=== PATIENT | female | born 1995 | race Caucasian/White ===

== ENCOUNTER 2017-01-25 01:03 | Emergency (ER) | payer SELFPAY ==
[2017-01-25] MEDS ORDERED: Vistaril 50 MG/ML IM ONE ×2 (01:35→01:41)
[2017-01-25] MEDS ORDERED: KEFLEX 500 MG PO ONE (01:36)
[2017-01-25] MEDS ORDERED: KEFLEX 500 MG ONE (01:41)
--- NOTE | 2017-01-25 01:42 | ERPHSYRPT ---
- History of Present Illness Time Seen by Provider: 01/25/17 01:32 Source: patient Patient Subjective Stated Complaint: Pt sts allergic reaction to insulation since Tuesday. Sts worsening since exposure. Sts on right jaw/neck and rt collar bone. Pt sts itching and pain. Sts taking OTC benadryl and using hydrocortisone cream for this. Sts she has not taken anything for pain OTC because "it doesn't work for me". Triage Nursing Assessment: Pt alert, oriented, answers all questions appropriately. Skin p/w/d, resps non-labored. Pt ambulatory to tx room steady gait noted. Localized erythema and swelling noted to rtight neck/jaw area. Reddened area with raised bumps noted rt collar bone area. Pt SPO2 WNL. Speaking in full sentences without difficulty. Physician History: CC: right face redness Hx: 21 y/o patient of [facility]. She had normal LMP last week. She rubbed right face and chest against fiberglass insulation a few days ago. Has itching and now worsening redness with some burning sensation. Used OTC hydrocortisone cream and oral benadryl. No fever or chills. No other complaints. Allergies/Adverse Reactions: No Known Drug Allergies Allergy (Verified 01/25/17 01:08) Home Medications: Norgestimate-Ethinyl Estradiol [Ortho Tri-Cyclen] 1 each PO DAILY 01/25/17 [ History] Hx Tetanus, Diphtheria Vaccination/Date Given: Yes (up to date) Hx Influenza Vaccination/Date Given: No Hx Pneumococcal Vaccination/Date Given: No Immunizations Up to Date: Yes - Review of Systems Constitutional: No Fever, No Chills Respiratory: No Dyspnea Skin: Pruritis, Rash (right face and right shoulder/upper chest) - Past Medical History Pertinent Past Medical History: Yes Respiratory History: Asthma GI Medical History: Other Psycho-Social History: Depression Other Medical History: gastritis - Past Surgical History Past Surgical History: No - Social History Smoking Status: Current every day smoker How long have you smoked: 2 Exposure to second hand smoke: No Drug Use: none Patient Lives Alone: No - Female History Hx Last Menstrual Period: 1 week ago - Nursing Vital Signs Nursing Vital Signs: Initial Vital Signs Temperature 98.3 F Temperature Source Oral Pulse Rate 105 Respiratory Rate 16 Blood Pressure [Right Arm] 130/69 Pain Intensity 8 - Physical Exam General Appearance: alert Eye Exam: PERRL/EOMI Ears, Nose, Throat Exam: moist mucous membranes Neck Exam: normal inspection, non-tender, supple Respiratory Exam: normal breath sounds Cardiovascular Exam: regular rate/rhythm Neurologic Exam: alert, oriented x 3, cooperative Skin Exam: warm, dry, other (red patch right cheek and some macular papular red areas right upper chest. Most consistent with contact allergy but could be some early cellulitic change.) SpO2: 98 Oxygen Delivery: Room Air - Course Nursing assessment & vital signs reviewed: Yes Ordered Tests: Medication Summary Generic Name Dose Route Start Last Admin Trade Name Freq PRN Reason Stop Dose Admin Cephalexin HCl 500 mg 01/25/17 01:36 Keflex 500 Mg PO 01/25/17 01:37 STAT ONE Discontinued Medications Generic Name Dose Route Start Last Admin Trade Name Freq PRN Reason Stop Dose Admin Hydroxyzine HCl 50 mg 01/25/17 01:35 Vistaril 50 Mg/Ml IM 01/25/17 01:36 STAT ONE - Progress Progress Note: 01/25/17 01:39 Tetanus up to date. Rx keflex. Change to po atarax. Rx hytone. Counseled pt/family regarding: diagnosis, need for follow-up - Departure Time of Disposition: 01:39 Departure Disposition: Home Clinical Impression: contact dermatitis right face Condition: Stable Critical Care Time: No Referrals: BLADIMIR VAZQUEZ [Primary Care Provider] - Instructions: Contact Dermatitis, Cellulitis -- Adult Additional Instructions: Rx hytone cream. Rx atarax. Rx keflex. Follow up this week with dr Vazquez. Report fever or worsening right away. Try topical aveeno oatmeal compresses. Prescriptions: Hydroxyzine HCl 50 mg PO Q6H PRN PRN #20 tablet PRN Reason: Itching Cephalexin Mh 500 mg [Keflex 500 mg] 1 cap PO QID #28 capsule Hydrocortisone [Hydrocortisone 2.5%] 30 gm TP BID #1 tube
[2017-01-25 01:54] VITALS: BP 131/75; PULSE 97; O2SAT 97
== END 2017-01-25 01:54 | disposition home or self-care (01) ==
LOC: ED 01:03
DX: L25.9 Unspecified contact dermatitis, unspecified cause (principal)
CPT/HCPCS: 96372; 99284; J3410; A9270-GY

== ENCOUNTER 2017-02-11 15:52 | Emergency (ER) | payer SELFPAY ==
[2017-02-11] MEDS ORDERED: TORAdol 30 mg Injection IV ONE (17:09)
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
[2017-02-11] MEDS ORDERED: TORAdol 30 mg Injection ONE (17:39)
[2017-02-11 17:50] LABS: Collection Type CCMS
[2017-02-11 17:51] LABS: Bilirubin NEGATIVE (NEGATIVE); COMPLETE URINE MICROSCOPIC? YES; Glucose NEGATIVE (NEGATIVE); Leukocyte Esterase 2+ (NEGATIVE)
[2017-02-11 17:52] LABS: ADD URINE CULTURE? YES (NO); Bacteria FEW /HPF (NEGATIVE); Epithelial Cells FEW /HPF (FEW)
[2017-02-11 17:55] LABS: BASOPHIL % 0.2 % (0.0-0.4); Eosinophil % 0.3 % (0.00-5.0); Granulocytes % 78.4 % (36.0-66.0); Mean Cell Volume 90.3 fl (78-100); Mean Corpuscular Hemoglobin 30.2 pg (26-32); Mean Platelet Volume 12.1 fl (6-9.5); Monocytes % 7.1 % (0.0-12.0); Platelet Count 284 K/mm3 (150-450); Red Blood Count 4.43 M/mm3 (4.1-5.4); Red Cell Distribution Width 13.9 % (11.5-14.0); White Blood Count 15.4 K/mm3 (4.0-10.5)
[2017-02-11 18:08] VITALS: O2SAT 98
[2017-02-11 18:08] LABS: ALBUMIN 3.6 g/dL (3.4-5.0); ALKALINE PHOSPHATASE 67 U/L (46-116); ANION GAP 14.5 MEQ/L (5-15); BLOOD UREA NITROGEN 10 mg/dL (9-20); CHLORIDE 106 mEq/L (98-107); Carbon Dioxide 25.7 mEq/L (21-32); Glucose 81 MG/DL (70-110); Potassium 3.9 mEq/L (3.5-5.1); SGOT/AST 19 U/L (15-37); SGPT/ALT 12 U/L (12-78); SODIUM 142 mEq/L (136-145); Total Protein 7.9 gm/dL (6.4-8.2)
[2017-02-11 18:24] LABS: BILIRUBIN,TOTAL < 0.10 mg/dL (0.2-1.0)
[2017-02-11] MEDS ORDERED: NORCO 5/325 MG PO ONE (18:31)
[2017-02-11] MEDS ORDERED: NORCO 5/325 MG ONE (18:43)
[2017-02-11 19:11] VITALS: BP 107/56; PULSE 79
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
== END 2017-02-11 19:11 | disposition home or self-care (01) ==
LOC: ED 15:52
DX: S00.93XA Contusion of unspecified part of head, initial encounter (principal); R42 Dizziness and giddiness; Y04.0XXA Assault by unarmed brawl or fight, initial encounter
CPT/HCPCS: 36000; 36415; 70450; 72125; 80053; 80307; 81000; 84703; 85025; 87086; 96374; 99284; J1885; A9270-GY

== ENCOUNTER 2017-02-14 21:30 | Emergency (ER) | payer SELFPAY ==
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
[2017-02-14] MEDS ORDERED: Sodium Chloride 0.9% 1000 ML 1,000 ML ONE (21:55)
[2017-02-14] MEDS ORDERED: Sodium Chloride 0.9% 1000 ML 1,000 ML IV SCH (22:00)
[2017-02-14 22:22] LABS: BASOPHIL % 0.3 % (0.0-0.4); Eosinophil % 2.1 % (0.00-5.0); Granulocytes % 60.1 % (36.0-66.0); Lymphocytes % 28.7 % (24.0-44.0); Mean Cell Volume 90.4 fl (78-100); Mean Corpuscular Hemoglobin 30.2 pg (26-32); Mean Platelet Volume 11.9 fl (6-9.5); Monocytes % 8.8 % (0.0-12.0); Platelet Count 304 K/mm3 (150-450); Red Blood Count 4.37 M/mm3 (4.1-5.4); Red Cell Distribution Width 13.7 % (11.5-14.0); White Blood Count 11.2 K/mm3 (4.0-10.5)
[2017-02-14 22:37] LABS: ALBUMIN 3.6 g/dL (3.4-5.0); ALKALINE PHOSPHATASE 65 U/L (46-116); ANION GAP 15.1 MEQ/L (5-15); BLOOD UREA NITROGEN 10 mg/dL (9-20); CHLORIDE 104 mEq/L (98-107); Carbon Dioxide 26.5 mEq/L (21-32); Glucose 94 MG/DL (70-110); LIPASE 177 U/L (73-393); Potassium 3.8 mEq/L (3.5-5.1); SGOT/AST 24 U/L (15-37); SGPT/ALT 32 U/L (12-78); SODIUM 142 mEq/L (136-145); Total Protein 7.7 gm/dL (6.4-8.2)
[2017-02-14 23:36] LABS: Bilirubin NEGATIVE (NEGATIVE); Collection Type CLEAN CATCH; Glucose NEGATIVE (NEGATIVE); Leukocyte Esterase NEGATIVE (NEGATIVE)
[2017-02-14 23:37] LABS: Bacteria RARE /HPF (NEGATIVE); Blood 250 Ery/ul (0-5); COMPLETE URINE MICROSCOPIC? YES; Epithelial Cells FEW /HPF (FEW); WBC 0-2 /HPF (0-5)
[2017-02-14 23:38] LABS: ADD URINE CULTURE? NO (NO)
[2017-02-15] MEDS ORDERED: ROCEPHIN 1 Gm-D5w 50 ml Bag** 1 G/50 ML IVPB IV STA (00:04)
[2017-02-15] MEDS ORDERED: ROCEPHIN 1 Gm-D5w 50 ml Bag** 1 G/50 ML IVPB IV ONE (00:08)
[2017-02-15] MEDS ORDERED: TORAdol 30 mg Injection IV ONE (00:09)
[2017-02-15] MEDS ORDERED: TORAdol 30 mg Injection ONE (00:10)
[2017-02-15 01:08] VITALS: BP 118/69; PULSE 66; O2SAT 100
== END 2017-02-15 01:06 | disposition home or self-care (01) ==
LOC: ED 21:30
DX: J32.9 Chronic sinusitis, unspecified (principal); F07.81 Postconcussional syndrome; R42 Dizziness and giddiness; R51 Headache
CPT/HCPCS: 36000; 36415; 80053; 80307; 81000; 82150; 83690; 83735; 84703; 85025; 96360; 96361; 96365; 96374; 99284; J0696; J1885

== ENCOUNTER 2017-09-17 18:45 | Emergency (ER) | payer OTHER ==
[2017-09-17] MEDS ORDERED: TYLENOL EXTRA STRENGTH 500 MG ONE (19:17)
[2017-09-17] MEDS: TYLENOL EXTRA STRENGTH 500 MG PO STA (19:18)
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
[2017-09-17] MEDS: NORCO 5/325 MG PO ONE (21:03)
[2017-09-17] MEDS ORDERED: NORCO 5/325 MG ONE (21:03)
[2017-09-17 21:21] VITALS: BP 112/60; PULSE 75; O2SAT 100
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
== END 2017-09-17 21:20 | disposition home or self-care (01) ==
LOC: ED 18:45
DX: F07.81 Postconcussional syndrome (principal); M54.2 Cervicalgia; M54.5 Low back pain; V89.0XXA Person injured in unspecified motor-vehicle accident, nontraffic, initial encounter; Y92.410 Unspecified street and highway as the place of occurrence of the external cause
CPT/HCPCS: 70450; 72125; 72128; 72131; 84703; 99284; A9270-GY

== ENCOUNTER 2021-08-04 16:26 | Emergency (ER) | payer SELFPAY ==
[2021-08-04 16:41] VITALS: BP 117/83; PULSE 81; O2SAT 97
[2021-08-04] MEDS ORDERED: Adacel Vial IM ONE ×2 (16:57→17:06)
[2021-08-04] MEDS ORDERED: Augmentin 875-125 Tablet PO ONE (16:57)
--- NOTE | 2021-08-04 17:05 | ERPHSYRPT ---
- History of Present Illness Time Seen by Provider: 08/04/21 16:40 Source: patient Exam Limitations: no limitations Patient Subjective Stated Complaint: pt was bite by cat, she had cat at the vet and it got scared and bit her Triage Nursing Assessment: pt alert, resp easy, skin w/d/p. has 6 puncture wounds to top of left hand, no bleeding Physician History: 26 years old right-handed dominant female presented in the ER with chief complaint of cat bite prior to arrival of left hand. Patient report cat usually stays outside and she brought him which probably scared him leading to bite. Unsure about the vaccination status of cat. She is acting normal otherwise. They have this cat for 2-1/2 years. Complaining of dull aching to sharp pain in the left hand with multiple punctures which is aggravated with movements and better with being still. No numbness tingling of fingers/thumb. Timing/Duration: today, sudden Quality: painful Severity: moderate Location: hands Possible Causes: other Associated Symptoms: swelling/mass/lumps Allergies/Adverse Reactions: No Known Drug Allergies Allergy (Verified 08/04/21 16:41) Home Medications: Metformin HCl [Metformin ER Osmotic] 1 ea BID 08/04/21 [History] Hx Tetanus, Diphtheria Vaccination/Date Given: No Hx Influenza Vaccination/Date Given: No Hx Pneumococcal Vaccination/Date Given: No Immunizations Up to Date: Yes Travel Risk - International Travel Have you traveled outside of the country in past 3 weeks: No - Coronavirus Screening Are you exhibiting any of the following symptoms?: No Symptoms: Shortness of Breath - Vaccine Status Have you recieved a Covid-19 vaccination: Yes 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: [employer] - Vaccination Dates Date of 2cond Vaccination (if applicable): jun 10 2021 - Review of Systems Constitutional: No Symptoms Ears, Nose, & Throat: No Symptoms Respiratory: No Symptoms Cardiac: No Symptoms Musculoskeletal: Injury Skin: Skin Lesions Neurological: No Symptoms Psychological: No Symptoms Endocrine: No Symptoms Hematologic/Lymphatic: No Symptoms - Past Medical History Pertinent Past Medical History: Yes Respiratory History: Asthma GI Medical History: Other Psycho-Social History: Depression Other Medical History: gastritis - Past Surgical History Past Surgical History: No - Social History Smoking Status: Never smoker How long have you smoked: 2 Exposure to second hand smoke: No Drug Use: none Patient Lives Alone: No - Female History Hx Last Menstrual Period: jun 2021 Hx Now: No - Nursing Vital Signs Nursing Vital Signs: Initial Vital Signs Temperature 98.3 F 08/04/21 16:37 Pulse Rate 81 08/04/21 16:37 Respiratory Rate 18 08/04/21 16:37 Blood Pressure 117/83 08/04/21 16:37 O2 Sat by Pulse Oximetry 97 08/04/21 16:37 Pain Scale Pain Intensity 6 - Physical Exam General Appearance: no apparent distress, alert Neck Exam: normal inspection, full range of motion Respiratory Exam: normal breath sounds, lungs clear Cardiovascular Exam: regular rate/rhythm, normal heart sounds Extremity Exam: other (Multiple puncture wounds left hand between thumb and index area. Tender to touch. Intact range of motion of thumb and index.) Neurologic Exam: alert, oriented x 3, cooperative Skin Exam: normal color SpO2 Interpretation: normal SpO2: 97 O2 Delivery: Room Air Ordered Tests: Medication Summary Discontinued Medications Generic Name Dose Route Start Last Admin Trade Name Freq PRN Reason Stop Dose Admin Amoxicillin/Clavulanate Potassium 875 mg 08/04/21 16:57 08/04/21 17:09 Amox Tr/Potassium Clavulanate 875 Mg Tablet PO 08/04/21 16:58 875 mg STAT ONE Administration Amoxicillin/Clavulanate Potassium Confirm 08/04/21 17:06 Amox Tr/Potassium Clavulanate 875 Mg Tablet Administered 08/04/21 17:07 Dose 875 mg .ROUTE .STK-MED ONE Diphtheria/Tetanus/Acell Pertussis 0.5 ml 08/04/21 16:57 08/04/21 17:10 Tdap --Diph,Pertuss(Acell),Tet Vac/Pf 0.5 Ml Vial IM 08/04/21 16:58 0.5 ml .ONCE ONE Administration Diphtheria/Tetanus/Acell Pertussis Confirm 08/04/21 17:06 Tdap --Diph,Pertuss(Acell),Tet Vac/Pf 0.5 Ml Vial Administered 08/04/21 17:07 Dose 0.5 ml IM .STK-MED ONE - Progress Progress: unchanged Progress Note: 08/04/21 17:01 Does not want any pain medication. Started on Augmentin, tetanus is updated. Paperwork filled for animal deptt. discussed sx/sn of worsening infection needing return which she seems understanding. recommed cat to keep under observation for at least 2 weeks and return if see any behavioral changes or signs of rabid. Counseled pt/family regarding: diagnosis, need for follow-up - Departure Departure Disposition: Home Clinical Impression: Cat bite of hand Qualifiers: Encounter type: initial encounter Laterality: left Qualified Code(s): S61.452A - Open bite of left hand, initial encounter Condition: Stable Critical Care Time: No Referrals: [facility] THOM[facility] MUTUEL CASHIER [Primary Care Provider] - Follow up/PCP as directed (in 2 days for re evaluation) Instructions: Animal Bites (DC), Rabies (DC) Additional Instructions: keep it clean, use Tylenol/Ibuprofen as needed for pain. Follow-up with primary care physician for reevaluation. Watch for signs of infection like increased redness swelling, difficulty movements of finger etc. Keep your cat under observation for at least 2 weeks and report to health department if see any signs of being rabid animal. Prescriptions: Ibuprofen 600 mg PO Q6HPRN PRN 10 Days #20 tablet PRN Reason: Pain Amox Tr/Potass Clav. 875 mg [Augmentin 875-125 Tablet] 875 mg PO BID #14 tablet
[2021-08-04] MEDS ORDERED: Augmentin 875-125 Tablet ONE (17:06)
== END 2021-08-04 17:31 | disposition home or self-care (01) ==
LOC: ED 16:26
DX: S61.452A Open bite of left hand, initial encounter (principal); W55.01XA Bitten by cat, initial encounter
CPT/HCPCS: 90471; 90715; 99283; A9270-GY

== ENCOUNTER 2022-12-25 12:48 | Emergency (ER) | payer MEDICAID, OTHER ==
--- NOTE | 2022-12-25 13:39 | ERPHSYRPT ---
- History of Present Illness Time Seen by Provider: 12/25/22 13:39 Source: patient Exam Limitations: no limitations Patient Subjective Stated Complaint: -11 weeks vaginal bleeding Triage Nursing Assessment: Patient ambulated back to ED and transferred self to bed. Patient A+O X3. Patient's skin pink, warm and dry. Patient states she is 11 weeks and started bleeding this am. Patient states she urinated this am and wiped and noticed bright red blood. Patient denies pain or discomfort. Physician History: 27yo at 11 weeks gestation presents to the ED reporting vaginal bleeding since this morning. Bleeding is similar to a normal period for her, no clots. No recent sexual activity. She denies F/C, abd pain, dysuria, DELGADO, vision changes. Patient does report nausea w/o vomiting. Timing/Duration: today Severity: moderate Modifying Factors: Improves With: nothing Associated Symptoms: nausea, No vomiting, No abdominal pain, No headaches Allergies/Adverse Reactions: No Known Drug Allergies Allergy (Verified 12/25/22 13:06) Home Medications: Pnv No.95/Ferrous Fum/Folic AC [ Caplet] 1 tab PO DAILY 12/25/22 [History] Progesterone, Micronized [Progesterone] 1 cap VAG DAILY 12/25/22 [History] Hx Tetanus, Diphtheria Vaccination/Date Given: No Hx Influenza Vaccination/Date Given: No Hx Pneumococcal Vaccination/Date Given: No Immunizations Up to Date: Yes Travel Risk - International Travel Have you traveled outside of the country in past 3 weeks: No - Coronavirus Screening Are you exhibiting any of the following symptoms?: No Close contact with a COVID-19 positive Pt in past 14-21 Days: No - Vaccine Status Have you recieved a Covid-19 vaccination: Yes 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 - Vaccination Dates Date of 2cond Vaccination (if applicable): jun 10 2021 - Review of Systems Constitutional: No Symptoms Eyes: No Symptoms Respiratory: No Symptoms Cardiac: No Symptoms Abdominal/Gastrointestinal: Nausea, No Abdominal Pain, No Vomiting, No Diarrhea Genitourinary Symptoms: , Vaginal Bleeding, No Dysuria, No Frequency, No Flank Pain, No Vaginal Discharge, No Vaginal Itching Musculoskeletal: No Symptoms Skin: No Symptoms Neurological: No Symptoms Hematologic/Lymphatic: No Symptoms - Past Medical History Pertinent Past Medical History: Yes Respiratory History: Asthma GI Medical History: Other Psycho-Social History: Depression Other Medical History: gastritis - Past Surgical History Past Surgical History: No - Social History Smoking Status: Never smoker How long have you smoked: 2 Exposure to second hand smoke: Yes Drug Use: none Patient Lives Alone: No - Female History Hx Last Menstrual Period: October 11, 2022 Hx Now: Yes Gestational Age: 11 weeks - Nursing Vital Signs Nursing Vital Signs: Initial Vital Signs Temperature 98.3 F 12/25/22 13:09 Pulse Rate 75 12/25/22 13:09 Respiratory Rate 18 12/25/22 13:09 Blood Pressure 124/81 12/25/22 13:09 O2 Sat by Pulse Oximetry 97 12/25/22 13:09 Pain Scale Pain Intensity 0 - Physical Exam General Appearance: no apparent distress Eye Exam: eyes nml inspection Ears, Nose, Throat Exam: normal ENT inspection Respiratory Exam: normal breath sounds Cardiovascular Exam: regular rate/rhythm Gastrointestinal/Abdomen Exam: soft, normal bowel sounds, No tenderness, No distention, No guarding, No rebound Pelvic Exam: normal external exam, vaginal bleeding (no clots appreciated, blood in the vaginal vault), No adnexal tenderness, No adnexal mass, No cervical motion tenderness, No uterine tenderness Back Exam: normal inspection, No CVA tenderness Neurologic Exam: alert, oriented x 3, cooperative Skin Exam: normal color, warm, dry SpO2 Interpretation: normal SpO2: 97 O2 Delivery: Room Air - Course Nursing assessment & vital signs reviewed: Yes - Radiology Ultrasound Exam OB Ultrasound: tele radiology report, Other (+ gestational sac, + pole, HR 163bpm, + movement) Lab/Rad Data: Laboratory Result Diagrams 12/25/22 13:58 12/25/22 13:58 Laboratory Results 12/25/22 12/25/22 12/25/22 Range/Units 14:14 13:58 13:58 WBC (4.0-10.5) x10^3/uL RBC (4.1-5.4) x10^6/uL Hgb (12.0-16.0) g/dL Hct (35-47) % MCV (78-100) fL MCH (26-32) pg MCHC (32-36) g/dL RDW (11.5-14.0) % Plt Count (150-450) x10^3/uL MPV (7.5-11.0) fL Sodium 137 (137-145) mmol/L Potassium 3.9 (3.5-5.1) mmol/L Chloride 102 (98-107) mmol/L Carbon Dioxide 23 (22-30) mmol/L Anion Gap 15.1 H (5-15) MEQ/L BUN 9 (7-17) mg/dL Creatinine 0.50 L (0.52-1.04) mg/dL Estimated GFR > 60.0 ML/MIN Glucose 73 L (74-106) mg/dL Calcium 8.8 (8.4-10.2) mg/dL Beta HCG, Quant 88237 mIU/ml Urine Color (Yellow) Urine Appearance (Clear) Urine pH (4.6-8.0) Ur Specific [place] (1.005-1.030) Urine Protein (Negative) Urine Glucose (UA) (Negative) mg/dL Urine Ketones (Negative) Urine Blood (Negative) Urine Nitrite (Negative) Urine Bilirubin (Negative) Urine Urobilinogen (0.2) mg/dL Ur Leukocyte Esterase (Negative) U Hyaline Cast (Auto) (0-2) /LPF Urine Microscopic RBC (0-5) /HPF Urine Microscopic WBC (0-5) /HPF Ur Epithelial Cells (None Seen) /HPF Urine Bacteria (None Seen) /HPF Urine Yeast (Budding) (None Seen) /HPF Urine Culture Reflexed (NO) Chlamydia DNA Probe NOT DETECTED (NEGATIVE) N.gonorrhoeae DNA Probe NOT DETECTED (NEGATIVE) ABO Group A Rh Factor POSITIVE Antibody Screen NEGATIVE (NEGATIVE) 12/25/22 12/25/22 Range/Units 13:58 13:55 WBC 9.9 (4.0-10.5) x10^3/uL RBC 4.06 L (4.1-5.4) x10^6/uL Hgb 12.3 (12.0-16.0) g/dL Hct 37.3 (35-47) % MCV 91.9 (78-100) fL MCH 30.3 (26-32) pg MCHC 33.0 (32-36) g/dL RDW 12.9 (11.5-14.0) % Plt Count 247 (150-450) x10^3/uL MPV 11.9 H (7.5-11.0) fL Sodium (137-145) mmol/L Potassium (3.5-5.1) mmol/L Chloride (98-107) mmol/L Carbon Dioxide (22-30) mmol/L Anion Gap (5-15) MEQ/L BUN (7-17) mg/dL Creatinine (0.52-1.04) mg/dL Estimated GFR ML/MIN Glucose (74-106) mg/dL Calcium (8.4-10.2) mg/dL Beta HCG, Quant mIU/ml Urine Color Yellow (Yellow) Urine Appearance Cloudy A (Clear) Urine pH 8.0 (4.6-8.0) Ur Specific [place] 1.025 (1.005-1.030) Urine Protein 30 (Negative) Urine Glucose (UA) Negative (Negative) mg/dL Urine Ketones Negative (Negative) Urine Blood Large A (Negative) Urine Nitrite Negative (Negative) Urine Bilirubin Negative (Negative) Urine Urobilinogen 1.0 A (0.2) mg/dL Ur Leukocyte Esterase Moderate A (Negative) U Hyaline Cast (Auto) NONE SEEN (0-2) /LPF Urine Microscopic RBC 11-20 A (0-5) /HPF Urine Microscopic WBC 6-10 A (0-5) /HPF Ur Epithelial Cells Moderate A (None Seen) /HPF Urine Bacteria Few A (None Seen) /HPF Urine Yeast (Budding) Rare A (None Seen) /HPF Urine Culture Reflexed YES (NO) Chlamydia DNA Probe (NEGATIVE) N.gonorrhoeae DNA Probe (NEGATIVE) ABO Group Rh Factor Antibody Screen (NEGATIVE) - Progress Progress Note: No concerns on lab evaluation, speculum exam showed blood, but no clots and no active bleeding from cervix, no cervical motion tenderness. Transvaginal US shows viable fetus w/ HR of 163bpm. Patient will f/u w/ Dr. Farah on Tuesday. Discussed with : Hank Will see patient in: office Counseled pt/family regarding: lab results, need for follow-up, rad results Medical Desision Making - Discussion of managment Care discussed with:: specialist Reviewed:: Test results, Need for additional workup Agreed on:: Treatment plan, need for follow-up Will see patient: In office - Diagnostic Testing Diagnostic test were ordered, analyzed, and reviewed by me: Yes Radiological Interpretation: Reviewed by me, Teleradiologist Report - Risk of complications Low Risk: Low risk of morbidity from additional dx testing or treatment - Departure Departure Disposition: Home Clinical Impression: and not yet delivered in first trimester, Vaginal bleeding before 22 weeks gestation, Asymptomatic bacteriuria during in first trimester Condition: Good Critical Care Time: No Referrals: JERMAINE FARAH DO [ACTIVE STAFF] - Follow up with PCP 2 days Instructions: Bleeding in Early (DC) Prescriptions: Nitrofurantoin Monohyd/M-Cryst [Macrobid 100 mg Capsule] 100 mg PO BID #10 cap
[2022-12-25 14:21] LABS: Hematocrit 37.3 % (35-47); Hemoglobin 12.3 g/dL (12.0-16.0); Mean Cell Volume 91.9 fL (78-100); Mean Corpuscular Hemoglobin 30.3 pg (26-32); Mean Platelet Volume 11.9 fL (7.5-11.0); Platelet Count 247 x10^3/uL (150-450); Red Blood Count 4.06 x10^6/uL (4.1-5.4); Red Cell Distribution Width 12.9 % (11.5-14.0); White Blood Count 9.9 x10^3/uL (4.0-10.5)
[2022-12-25 14:47] LABS: Appearance Cloudy (Clear); Bacteria Few /HPF (None Seen); Bilirubin Negative (Negative); Blood Large (Negative); Epithelial Cells Moderate /HPF (None Seen); Glucose, Urine Negative (Negative); Hyaline Casts NONE SEEN /LPF (0-2); Ketones Negative (Negative); Leukocyte Esterase Moderate (Negative); Nitrite Negative (Negative); Protein,Urine Dip 30 (Negative); Specific Gravity 1.025 (1.005-1.030)
[2022-12-25 14:48] LABS: ANION GAP 15.1 MEQ/L (5-15); BLOOD UREA NITROGEN 9 mg/dL (7-17); CHLORIDE 102 mmol/L (98-107); Calcium 8.8 mg/dL (8.4-10.2); Carbon Dioxide 23 mmol/L (22-30); EST GLOMERULAR FILTRATION RATE > 60.0 ML/MIN; Glucose 73 mg/dL (74-106); Potassium 3.9 mmol/L (3.5-5.1); SODIUM 137 mmol/L (137-145)
[2022-12-25 14:58] LABS: ABO TYPING A; Antibody Screen NEGATIVE (NEGATIVE); RH TYPING POSITIVE
[2022-12-25 15:16] LABS: Budding Yeast Rare /HPF (None Seen)
[2022-12-25 15:17] LABS: ADD URINE CULTURE? YES (NO)
[2022-12-25 16:09] LABS: CHLAMYDIA DNA NOT DETECTED (NEGATIVE); GC DNA Probe NOT DETECTED (NEGATIVE)
[2022-12-25 16:46] LABS: HCG, Quantitative (Inhouse) 60628 mIU/ml
[2022-12-25 17:32] VITALS: BP 105/82; PULSE 78
--- NOTE | 2022-12-25 19:19 | XRAY ---
Indication: Bleeding. Two-dimensional transabdominal and transvaginal early OB ultrasound performed. Comparison: None Single injured gestational sac with presence of a single pole and yolk sac. Mean crown-rump length measures 3.93 cm corresponding to 10 weeks 6 days. heart rate 143 BPM. No abnormal subchorionic fluid. Left and right ovaries are sonographically unremarkable. Impression: Single viable intrauterine measuring 10 weeks 6 days. Expected date confinement is July 17, 2023. Nothing acute. Comment: Preliminary report was given.
[2022-12-27 21:07] VITALS: O2SAT 97
== END 2022-12-25 17:35 | disposition home or self-care (01) ==
LOC: ED 12:48
DX: O20.9 Hemorrhage in early pregnancy, unspecified (principal); Z3A.11 11 weeks gestation of pregnancy; O99.891 Other specified diseases and conditions complicating pregnancy; R82.71 Bacteriuria; R11.0 Nausea
CPT/HCPCS: 36415; 76817; 80048; 81001; 84702; 85027; 86850; 86900; 86901; 87086; 87491; 87591; 99283

== ENCOUNTER 2023-03-20 09:27 | Observation (INO) | payer OTHER ==
[2023-03-20 09:57] VITALS: BP 120/58; PULSE 85; RESP 18; TEMP 98.3; O2SAT 97
== END 2023-03-20 10:25 | disposition home or self-care (01) ==
LOC: OB 09:47
PROVIDERS: ADMIT Obstetrics & Gynecology; ATTEND Obstetrics & Gynecology
DX: Z34.02 Encounter for supervision of normal first pregnancy, second trimester (principal); Z3A.22 22 weeks gestation of pregnancy
CPT/HCPCS: G0378; G0379

== ENCOUNTER 2023-03-28 22:44 | Observation (INO) | payer OTHER ==
[2023-03-28 23:37] VITALS: BP 126/66; PULSE 88; TEMP 98.5
[2023-03-29 01:36] VITALS: RESP 20
== END 2023-03-28 23:50 | disposition home or self-care (01) ==
LOC: OB 22:44
PROVIDERS: ADMIT Family Medicine; ATTEND Obstetrics & Gynecology
DX: Z34.02 Encounter for supervision of normal first pregnancy, second trimester (principal); Z3A.24 24 weeks gestation of pregnancy

== ENCOUNTER 2023-04-09 19:30 | Observation (INO) | payer OTHER ==
[2023-04-09 20:50] LABS: Appearance Turbid (Clear); Bacteria Rare /HPF (None Seen); Bilirubin Negative (Negative); Blood Large (Negative); Epithelial Cells Moderate /HPF (None Seen); Glucose, Urine Negative (Negative); Hyaline Casts NONE SEEN /LPF (0-2); Ketones 15 (Negative); Leukocyte Esterase Small (Negative); Nitrite Negative (Negative); Protein,Urine Dip 30 (Negative); RBC >100 /HPF (0-5); Specific Gravity 1.015 (1.005-1.030); Urobilinogen 0.2 mg/dL (0.2)
[2023-04-09 20:52] LABS: ADD URINE CULTURE? YES (NO)
[2023-04-09 21:01] LABS: Amphetamine,Urine NEGATIVE (NEGATIVE); Barbiturate,Urine NEGATIVE (NEGATIVE); Benzodiazepine,Urine NEGATIVE (NEGATIVE); Cocaine,Urine NEGATIVE (NEGATIVE); Methadone,Urine NEGATIVE (NEGATIVE); Opiate,Urine NEGATIVE (NEGATIVE); PCP,Urine NEGATIVE (NEGATIVE); THC,Urine NEGATIVE (NEGATIVE)
[2023-04-09] MEDS ORDERED: TYLENOL EXTRA STRENGTH 500 MG PO PRN (23:59)
[2023-04-10 00:59] VITALS: O2SAT 98
[2023-04-10 04:36] VITALS: TEMP 98.2
[2023-04-10 08:48] VITALS: BP 137/70; PULSE 91; RESP 18
== END 2023-04-10 10:37 | disposition home or self-care (01) ==
LOC: OB 19:30
PROVIDERS: ADMIT Obstetrics & Gynecology; ATTEND Obstetrics & Gynecology
DX: Z34.02 Encounter for supervision of normal first pregnancy, second trimester (principal); Z3A.25 25 weeks gestation of pregnancy
CPT/HCPCS: 59025; 80307; 81001; 87086; 99213; G0378; G0379; A9270-GY

== ENCOUNTER 2023-05-06 04:00 | Observation (INO) | payer OTHER ==
[2023-05-06 04:37] VITALS: PULSE 91; TEMP 98.9; O2SAT 97
[2023-05-06 05:35] LABS: Amphetamine,Urine NEGATIVE (NEGATIVE); Barbiturate,Urine NEGATIVE (NEGATIVE); Benzodiazepine,Urine NEGATIVE (NEGATIVE); Cocaine,Urine NEGATIVE (NEGATIVE); Methadone,Urine NEGATIVE (NEGATIVE); Opiate,Urine NEGATIVE (NEGATIVE); PCP,Urine NEGATIVE (NEGATIVE); THC,Urine NEGATIVE (NEGATIVE)
[2023-05-06 06:03] LABS: Appearance Clear (Clear); Bacteria Rare /HPF (None Seen); Bilirubin Negative (Negative); Blood Large (Negative); Epithelial Cells Few /HPF (None Seen); Glucose, Urine Negative (Negative); Hyaline Casts NONE SEEN /LPF (0-2); Ketones Negative (Negative); Leukocyte Esterase Trace (Negative); Nitrite Negative (Negative); Protein,Urine Dip Negative (Negative); Urobilinogen 0.2 mg/dL (0.2)
[2023-05-06 06:31] LABS: ADD URINE CULTURE? YES (NO)
--- NOTE | 2023-05-06 08:36 | XRAY ---
Indication: Bleeding. Limited OB ultrasound performed. Comparison: February 28, 2023 Again single intrauterine now in breech presentation. heart rate 144 BPM. Again anterior placenta without retroplacental fluid. Four-quadrant WHITNEY is 16.4 cm, largest pocket 6.1 cm. Cervical length 5.0 cm.
[2023-05-06 14:09] VITALS: BP 140/88; RESP 20
== END 2023-05-06 09:55 | disposition home or self-care (01) ==
LOC: UNDOADMOB 04:00 → MED SURG 04:00
PROVIDERS: ADMIT Obstetrics & Gynecology; ATTEND Obstetrics & Gynecology
DX: Z34.03 Encounter for supervision of normal first pregnancy, third trimester (principal); Z3A.29 29 weeks gestation of pregnancy
CPT/HCPCS: 76816; 80307; 81001; 87086; G0378; G0379

== ENCOUNTER 2023-06-29 07:11 | Inpatient (IN) | payer OTHER ==
[2023-06-29] MEDS ORDERED: MORPHINE SULFATE 2 MG INJ IV PRN (07:48)
[2023-06-29] MEDS ORDERED: HOLD NARCOTIC ANALGESICS AND SEDATIVES X24 HR MC PRN (07:48)
[2023-06-29] MEDS ORDERED: MORPHINE SULFATE 4 MG INJ IV PRN (07:48)
[2023-06-29] MEDS ORDERED: DEMEROL 50 MG IV PRN ×2 (07:48)
[2023-06-29] MEDS ORDERED: Narcan 0.4 MG/ML IV PRN (07:48)
[2023-06-29] MEDS ORDERED: PERCOCET TABLET 5/325MG PO PRN (07:48)
[2023-06-29] MEDS ORDERED: Zofran 4 MG/2 ML VIAL IV PRN ×2 (07:48)
[2023-06-29] MEDS ORDERED: BENADRYL 50 MG/ML IV PRN (07:48)
[2023-06-29] MEDS ORDERED: Nubain 10 MG/ML IV PRN (07:48)
[2023-06-29] MEDS ORDERED: Reglan 10 MG/2 ML IV PRN (07:48)
[2023-06-29] MEDS ORDERED: CLARITIN 10 MG PO PRN (07:48)
[2023-06-29] MEDS ORDERED: Lactated Ringers 1,000 ML IV ONE ×3 (07:48→09:27)
[2023-06-29] MEDS ORDERED: Pepcid 20 MG VIAL IV SCH ×2 (08:00)
[2023-06-29] MEDS ORDERED: Reglan 10 MG/2 ML IV SCH ×2 (08:00)
[2023-06-29] MEDS ORDERED: SOD CITRATE-CITRIC ACID SOLN PO SCH ×2 (08:00)
[2023-06-29] MEDS ORDERED: Lactated Ringers 1,000 ML IV SCH (08:00)
[2023-06-29 08:14] LABS: Hematocrit 37.5 % (35-47); Hemoglobin 12.2 g/dL (12.0-16.0); Mean Cell Volume 88.7 fL (78-100); Mean Corpuscular Hemoglobin 28.8 pg (26-32); Mean Corpuscular Hgb Concent. 32.5 g/dL (32-36); Mean Platelet Volume 12.4 fL (7.5-11.0); Platelet Count 235 x10^3/uL (150-450); Red Blood Count 4.23 x10^6/uL (4.1-5.4); Red Cell Distribution Width 14.8 % (11.5-14.0); White Blood Count 13.1 x10^3/uL (4.0-10.5)
[2023-06-29 08:22] LABS: INR 0.88 (0.8-3.0); PROTIME 9.7 SECONDS (9.4-12.5); PTT 26.2 SECONDS (25.1-36.5)
[2023-06-29 08:50] LABS: ABO TYPING A; Antibody Screen NEGATIVE (NEGATIVE); RH TYPING POSITIVE
[2023-06-29] MEDS ORDERED: CEFAZOLIN 2 GM-D5W BAG** 2 GM/50 ML ML IV SCH (09:00)
[2023-06-29] MEDS ORDERED: Astramorph-Pf 5 MG/10 ML ONE (09:03)
[2023-06-29] MEDS ORDERED: PHENYLEPHRINE HCL ONE (09:21)
[2023-06-29] MEDS ORDERED: Pitocin 10 UNITS/ML ONE ×2 (09:27→09:28)
[2023-06-29] MEDS ORDERED: Naropin 0.5% 30 ML VIAL ONE (09:39)
[2023-06-29] MEDS ORDERED: Epinephrine Preservative Free 1 MG/ML ONE (09:39)
[2023-06-29] MEDS ORDERED: Versed 2 MG/2 ML Injection ONE (10:12)
[2023-06-29] MEDS ORDERED: DEMEROL 50 MG ONE (10:34)
[2023-06-29] MEDS ORDERED: TORAdol 30 mg Injection ONE (10:39)
[2023-06-29 10:59] LABS: Appearance Clear (Clear); Bacteria None Seen /HPF (None Seen); Bilirubin Negative (Negative); Blood Negative (Negative); Epithelial Cells None Seen /HPF (None Seen); Glucose, Urine Negative (Negative); Hyaline Casts NONE SEEN /LPF (0-2); Ketones Negative (Negative); Leukocyte Esterase Negative (Negative); Nitrite Negative (Negative); Protein,Urine Dip Negative (Negative); RBC 0-2 /HPF (0-5); Specific Gravity 1.015 (1.005-1.030); Urobilinogen 0.2 mg/dL (0.2)
--- NOTE | 2023-06-29 11:25 | OP ---
SURGERY DATE/TIME: 06/29/2023 0903 PREOPERATIVE DIAGNOSES: 1) Term intrauterine in active labor. 2) Breech presentation. 3) macrosomia. POSTOPERATIVE DIAGNOSES: 1) Term intrauterine in active labor. 2) Breech presentation. 3) macrosomia. PROCEDURE: Primary low transverse section. SURGEON: Anuj Harrison M.D. ANESTHESIA: Spinal by Ronald Diaz CRNA. QUANTITATIVE BLOOD LOSS: 862 ml. URINE OUTPUT: 200 ml of clear straw-colored urine. SPECIMEN: Placenta was sent for pathology. DESCRIPTION OF PROCEDURE: The patient is a 28-year-old 1, para 0 at 37 plus week gestational age who has had her care thus far with Dr. Farah. She has had recent ultrasound which showed macrosomia and breech presentation and he arrived this morning with grossly ruptured membranes positive AmniSure in active labor with regular contractures. She consented to low transverse section and was taken to the OR where she underwent spinal anesthesia. She was prepped and draped in the usual sterile fashion after Ramsey catheter was inserted. Adequate level of anesthesia was assessed and a low transverse skin incision was made by knife and carried down to the subcutaneous fat to the level of the fascia. The fascia was nicked on both sides of the midline and extended horizontal using curved Watkins scissors. The superior free edge of the fascia was grasped with Thom clamps and the underlying rectus muscles were dissected free. The same was repeated inferiorly. Next, the peritoneal cavity was entered in blunt dissection and extended in horizontal. Bladder flap was then created and reflected over the lower uterine segment. Horizontal uterine incision was made by knife and carried down to the level of the amniotic membranes which were carefully artificially ruptured. A viable female infant was delivered from the breech presentation. She did void on the operative field at the time of delivery. She had respiratory effort and good color at the time of delivery. The oropharynx and nares were bulb suctioned free. The cord was clamped and cut and she was handed off to the awaiting nursery team. The placenta was manually extracted and the uterus was exteriorized. The uterine cavity was sponge curetted clean with a moist lap sponge. The uterine incision was closed with #1 chromic in running locked fashion, this was closed in two layers with good hemostasis and good closure achieved. The posterior cul-de-sac was suctioned free of any blood and a moist lap sponge was used to clean the posterior cul-de-sac. The uterus was then returned to the peritoneal cavity. Both lateral gutters were wiped free of blood and clot with a moist lap sponge. The incision was inspected closely and confirmed to have good closure and good hemostasis at this level. The fascia was then closed with 0 Vicryl in a running fashion with good closure and good hemostasis likewise achieved at that layer. The subcutaneous fat was irrigated with warm, sterile saline. Finally, the skin layer was closed with 4-0 undyed Vicryl in a running subcuticular fashion. Steri-Strips and occlusive dressing were placed over the incision and the patient was transferred to the recovery room in good condition.
[2023-06-29 12:29] LABS: Amphetamine,Urine NEGATIVE (NEGATIVE); Barbiturate,Urine NEGATIVE (NEGATIVE); Benzodiazepine,Urine NEGATIVE (NEGATIVE); Cocaine,Urine NEGATIVE (NEGATIVE); Methadone,Urine NEGATIVE (NEGATIVE); Opiate,Urine NEGATIVE (NEGATIVE); PCP,Urine NEGATIVE (NEGATIVE); THC,Urine NEGATIVE (NEGATIVE)
[2023-06-29] MEDS ORDERED: CORTISONE 1% CREAM TP PRN (13:00)
[2023-06-29] MEDS ORDERED: LANSINOH 40 GM TOP PRN (13:00)
[2023-06-29] MEDS ORDERED: Anucort-HC SUPPOSITORY PR PRN (13:00)
[2023-06-29] MEDS ORDERED: Dulcolax 10 MG SUPP PR PRN (13:00)
[2023-06-29] MEDS ORDERED: TUCKS TP PRN (13:00)
[2023-06-29] MEDS ORDERED: Dextrose 5%-Lr IV Solution 1000 ML 1,000 ML IV SCH (13:00)
[2023-06-29] MEDS ORDERED: Mylicon 80MG PO PRN (13:00)
[2023-06-29] MEDS ORDERED: Sodium Chloride 0.9% 10 ML FLUSH Syringe IJ SCH (14:00)
[2023-06-29] MEDS: Docusate Sodium 100 MG PO SCH ×2 (14:04→21:19)
[2023-06-29] MEDS ORDERED: Adacel Vial IM ONE (18:00)
[2023-06-29] MEDS: TYLENOL EXTRA STRENGTH 500 MG PO PRN (21:17)
[2023-06-29] MEDS: MOTRIN 400 MG PO PRN (21:18)
[2023-06-30] MEDS: TORAdol 30 mg Injection IV PRN ×2 (00:06→12:20)
[2023-06-30] MEDS: MOTRIN 400 MG PO PRN ×2 (05:04→17:33)
[2023-06-30 05:38] LABS: Absolute Neutrophil Ct (ANC) 10.87 x10^3/uL (1.4-6.9); BASOPHIL % 0.1 % (0.0-0.4); Basophil (Absolute #) 0.02 x10^3/uL (0-0.4); Eosinophil % 0.6 % (0.00-5.0); Eosinophil (Absolute #) 0.08 x10^3/uL (0-0.5); Hematocrit 30.6 % (35-47); Hemoglobin 9.8 g/dL (12.0-16.0); IMMATURE GRAN # 0.14 x10^3u/L (0.00-0.03); Lymphocyte (Absolute #) 2.02 x10^3/uL (1.0-4.6); Lymphocytes % 14.1 % (24.0-44.0); Mean Cell Volume 91.1 fL (78-100); Mean Corpuscular Hemoglobin 29.2 pg (26-32); Mean Platelet Volume 11.7 fL (7.5-11.0); Monocyte (Absolute #) 1.15 x10^3/uL (0.0-1.3); Monocytes % 8.1 % (0.0-12.0); Neutrophil % 76.1 % (36.0-66.0); Platelet Count 211 x10^3/uL (150-450); Red Blood Count 3.36 x10^6/uL (4.1-5.4); Red Cell Distribution Width 15.3 % (11.5-14.0); White Blood Count 14.3 x10^3/uL (4.0-10.5)
[2023-06-30] MEDS: TYLENOL EXTRA STRENGTH 500 MG PO PRN ×2 (08:22→20:34)
[2023-06-30] MEDS: FERREX 150 PO SCH (09:50)
[2023-06-30] MEDS: Docusate Sodium 100 MG PO SCH ×2 (09:50→20:34)
[2023-06-30] MEDS ORDERED: M-M-R II Vaccine With Diluent SQ ONE (10:00)
[2023-06-30] MEDS ORDERED: Ambien 10 MG PO PRN (13:00)
[2023-07-01] MEDS: TYLENOL EXTRA STRENGTH 500 MG PO PRN (01:15)
[2023-07-01 01:25] VITALS: TEMP 97.7
[2023-07-01] MEDS: MOTRIN 400 MG PO PRN ×2 (02:01→08:02)
[2023-07-01] MEDS: NORCO 5/325 MG PO PRN ×2 (05:02→10:11)
--- NOTE | 2023-07-01 07:45 | PCM.NOTE ---
Date and Time: 07/01/23 0744 Subjective Assessment: pod 2 pt resting in chair and doing well able to ambulate and tolerate diet. vss afebrile abd; soft incision with dressing intact with no soilage uterus; firm lochia; mild hgb;9.8 a/p sp csection pod 2 dc home today should fu in office next tuesday OBJECTIVE DATA Vital Signs: Vital Signs - 24 hr Temp Pulse Resp BP Pulse Ox 07/01/23 01:24 97.7 F 98 H 20 117/55 98 06/30/23 20:00 98.9 F 95 H 20 123/57 97 06/30/23 17:00 97.8 F 101 H 18 128/69 99 06/30/23 13:00 97.5 F 95 H 18 133/75 98 06/30/23 08:30 97.3 F 102 H 18 122/76 98 Pain Assessment - Last Documented Pain Intensity [Lower Anterior 1 /Posterior] Pain Intensity 0 Pain Scale Used 0-10 Pain Scale Intake and Output: Intake & Output 06/28/23 06/29/23 06/30/23 07/01/23 11:59 11:59 11:59 11:59 Intake Total 1000 6000 1700 Output Total 862 2400 Balance 138 3600 1700 Weight 119.295 kg Assessment/Plan (1) Status post primary low transverse section Current Visit: Yes Status: Acute Code(s): Z98.891 - HISTORY OF UTERINE SCAR FROM PREVIOUS SURGERY
--- NOTE | 2023-07-01 07:50 | PCM.DS ---
Discharge Summary Date of Admission: 06/29/23 07:11 Admitting Physician: JERMAINE PUENTE DO Consults: Consults on Case 06/29/23 07:48 Notify Anesthesia Provider PRN Notify Anesthesia Provider PRN Notify Anesthesia Provider ROUTINE Notify Physician OF ADMISSION 06/29/23 07:50 Notify Physician ROUTINE 06/29/23 12:13 Navigation ONCE Primary Care Provider: WAYNE QUICK NP Allergies Allergies No Known Drug Allergies Allergy (Verified 05/06/23 04:17) Hospital Summary - Hospital Course Hospital Course: pt admitted on jun 29 for having had srom in the am and was noted having baby in breech position with macrosomia. pt underwent primary csection on jun 29 and delivered live baby girl without complication. during postop period did well was able to ambulate and tolerate diet. hgb stable at 9.8 and incision with dressing intact with no soilage. pt at this time stable for discharge and was advised to fu in office next tuesday for dressing removal. pt given percocet for pain management and all questions answered to her satisfaction. - Vitals & Intake/Output Vital Signs: Vital Signs Temperature 97.7 F 07/01/23 01:24 Pulse Rate 98 H 07/01/23 01:24 Respiratory Rate 20 07/01/23 01:24 Blood Pressure 117/55 07/01/23 01:24 O2 Sat by Pulse Oximetry 98 07/01/23 01:24 Intake & Output: Intake & Output 06/28/23 06/29/23 06/30/23 07/01/23 11:59 11:59 11:59 11:59 Intake Total 1000 6000 1700 Output Total 862 2400 Balance 138 3600 1700 Weight 119.295 kg - Lab Result Diagrams: 06/30/23 05:36 Micro Results-Entire Visit: Microbiology 06/29/23 09:19 Urine Culture - Preliminary Catherized NO GROWTH TO DATE - Procedures and Test Procedures and Tests throughout Hospitalization: Therapy Orders & Screens 06/29/23 10:30 Standby ROUTINE Comment: Diagnosis: iup 06/29/23 20:43 Incentive Spirometry UD Comment: Diagnosis: iup Final Diagnosis/Problem List - Final Discharge Diagnosis/Problem (1) Status post primary low transverse section Current Visit: Yes Status: Acute Code(s): Z98.891 - HISTORY OF UTERINE SCAR FROM PREVIOUS SURGERY - Discharge Disposition: Home, Self-Care Condition: Stable Prescriptions: New Oxycodone HCl/Acetaminophen [Percocet 5-325 mg Tablet] 1 each PO Q6HPRN PRN #26 tablet MDD 4 PRN Reason: Moderate To Severe Pain No Action Pnv No.95/Ferrous Fum/Folic AC [ Caplet] 1 tab PO DAILY Follow up with: WAYNE QUICK SILK SCREEN ETCHER [Primary Care Provider] - JERMAINE PUENTE DO [ACTIVE STAFF] - 07/06/23
[2023-07-01] MEDS: Docusate Sodium 100 MG PO SCH (08:02)
[2023-07-01] MEDS: FERREX 150 PO SCH (08:02)
[2023-07-01 09:57] VITALS: BP 124/59; PULSE 89; RESP 18; O2SAT 97
== END 2023-07-01 11:20 | disposition home or self-care (01) | DRG 788 ==
LOC: OB 07:11
PROVIDERS: ADMIT Obstetrics & Gynecology; ATTEND Obstetrics & Gynecology
PROC: 10D00Z1 Extraction of Products of Conception, Low, Open Approach (ICD-10-PCS; principal; 2023-06-29)
DX: O66.2 Obstructed labor due to unusually large fetus (principal); O64.1XX0 Obstructed labor due to breech presentation, not applicable or unspecified; Z37.0 Single live birth; Z3A.37 37 weeks gestation of pregnancy; Z20.828 Contact with and (suspected) exposure to other viral communicable diseases
CPT/HCPCS: 36415; 62322; 64488; 76937; 76942; 80307; 81001; 84112; 85025; 85027; 85610; 85730; 86850; 86900; 86901; 87086; 90715; 94799; 96372; 99140; J0171; J0690; J1885; J2175; J2250; J2274; J2371; J2590; J2795; L0625; A9270-GY